=== PATIENT | male | born 1980 | race Asian ===

== ENCOUNTER 2018-01-06 18:14 | Emergency (ER) | payer SELFPAY ==
--- NOTE | 2018-01-06 18:23 | ED Physician Documentation ---
PD HPI ALTERED MENTAL STATUS - Stated complaint Stated Complaint: AMS - History obtained from History obtained from: Police - History of Present Illness Timing - onset: Other (I was going in to see the patient, he was walking out the ambulance doors with a steady gait. He had been brought in by a environmental science instructor's deputy because he was acting odd in the side of the road, not really talking. I did not formally evaluate this patient, we did ask the optical model maker and tester if he wanted him held for eval or if he wanted to retrieve the patient from the parking lot and the environmental science instructor's deputy felt there was no need for involuntary jail and I had no further contact with the patient.) Departure - Departure Disposition: ED Mary
== END 2018-01-06 18:24 | disposition left against medical advice (07) ==
LOC: ED 18:14
DX: Z53.21 Procedure and treatment not carried out due to patient leaving prior to being seen by health care provider (principal)